=== PATIENT | male | born 1985 | race African-American/Black ===

== ENCOUNTER 2016-07-18 06:39 | Emergency (ER) | payer MEDICAID, MEDICARE ==
[~2016-07-18] VITALS: Ht 180.3 cm; Wt 75.6 kg
[~2016-07-18 06:39] MED LIST: BUPR100T6 PO; DEXL30CA2 PO; HYDR-882 PO; HYDR12.53 PO; LISI-170 PO; LORA1TAB PO; ONDA4TAB10 PO; ONDA4TAB7 PO; OXYC5TAB3 PO; PROM12.553 RC; PROM25SU2 PR; PROM25TA10 PO; QUET100T4 PO; TRAM50TA2 PO
[2016-07-18 06:41] VITALS: BP 123/83
[2016-07-18 08:03] LABS: BLOOD UREA NITROGEN 16 mg/dL (7-18)
== END 2016-07-18 09:07 | disposition home or self-care (01) ==
LOC: ED 08:46
DX: M79.89 Other specified soft tissue disorders (principal); I10 Essential (primary) hypertension; J45.909 Unspecified asthma, uncomplicated
CPT/HCPCS: 36415; 80048; 82040; 85025; 99284

== ENCOUNTER 2017-02-25 12:35 | Emergency (ER) | payer MEDICAID, MEDICARE ==
[~2017-02-25] VITALS: Ht 182.9 cm; Wt 73.0 kg
[2017-02-25 12:52] VITALS: BP 113/63
[2017-02-25] MEDS ORDERED: LIDOCAINE 1%, 20ML SQ ONE (13:30)
[2017-02-25] MEDS ORDERED: LIDOCAINE 1%, 20ML ONE (13:31)
== END 2017-02-25 14:45 | disposition home or self-care (01) ==
LOC: ED 14:39
DX: L03.112 Cellulitis of left axilla (principal); J45.909 Unspecified asthma, uncomplicated; I10 Essential (primary) hypertension; Z88.8 Allergy status to other drugs, medicaments and biological substances
CPT/HCPCS: 99283